=== PATIENT | male | born 1980 | race African-American/Black ===

== ENCOUNTER 2020-05-29 19:07 | Emergency (ER) | payer BC, SELFPAY ==
--- NOTE | ~2020-05-29 | XR_ITS ---
EXAMINATION: XR chest 2V EXAM DATE: 05/29/2020 20:20 INDICATION: Left-sided chest pain. TECHNIQUE: Frontal and lateral projections of the chest obtained and reviewed. There is no prior ajith dy for comparison. FINDINGS: The lungs are clear. There are no pleural effusions. The cardiomediastinal silhouette is within normal limits. There is no pneumothorax suspected. The bones and soft tissues are unremarkab le. IMPRESSION: Normal chest x-ray exam. Reviewed, dictated and finalized at location A. IMPRESSION: Normal chest x-ray exam.
--- NOTE | ~2020-05-29 | CT_ITS ---
EXAMINATION: CTA chest EXAM DATE: 05/29/2020 23:50 INDICATION: Chest pain radiates to back. TECHNIQUE: Spiral CT angiogram of the chest following intravenous injection of 100 mL Omnipaque 350. Axial, coronal and sagittal images were reviewed. Coronal maximum intensity pixel images of chest r eviewed. Maximum intensity projection 3-D reconstructions of the aorta were created by the [employer] on dedicated workstation. The dose-length product (DLP) for this examination was 1148.53 mGy-cm. The exposure was tailored according to patient size (auto mA exposure control), and iterative recons truction (ASIR) was used as additional dose reduction technique. There is no prior study for compari son. FINDINGS: No central pulmonary emboli. Thoracic aorta is normal. There are no pleural or pericardia l effusions. Tracheobronchial tree is patent. There is no mediastinal, hilar or axillary lymphade nopathy. There is no pneumothorax. Heart normal in size. There is mild coronary arterial calcif ication, arterial sclerosis. Small region of transient hepatic attenuation difference There is thor acic spondylosis without osteoblastic or osteolytic lesions identified. IMPRESSION: Normal thoracic aorta. No acute findings. Reviewed, dictated and finalized at location G.
[2020-05-29 19:25] VITALS: BP 208/113; PULSE 68; RESP 18; TEMP 36.7; O2SAT 98
--- NOTE | 2020-05-29 19:28 | ECG_ITS ---
Measurements Intervals [place] Rate: 71 P: 43 [place]: 176 QRS: 31 QRSD: 106 T: 15 QT: 363 QTc: 395 Interpretive Statements SINUS RHYTHM ST ELEVATION IN DIFFUSE LEADS CONSISTENT WITH INJURY, PERICARDITIS, OR EARLY REPOLARIZATION ABNORMAL ECG Electronically Signed On 05-30-2020 6:51:35 CDT by Paulino Escamilla D.O.
[2020-05-29 19:36] LABS: Basophils Percent Auto 0.4 % (0.2-1.2); Eosinophils Absolute Auto 0.1 K/mm3 (0-0.3); Eosinophils Percent Auto 1.3 % (0-4.4); Hematocrit 38.2 % (42.0-52.0); Hemoglobin 13.4 g/dL (14.0-18.0); Immature Granulocyte Absolute 0.01 K/mm3 (0.00-0.031); Immature Granulocyte Percent A 0.1 % (0-0.5); Lymphocytes Absolute Auto 2.34 K/mm3 (0.9-3.2); Lymphocytes Percent Auto 32.9 % (18.3-44.2); Mean Corpuscular HGB Conc 35.1 g/dl (32-36); Mean Corpuscular Hemoglobin 29.8 pg (26-34); Mean Corpuscular Volume 84.9 fl (80-100); Monocytes Absolute Auto 0.5 K/mm3 (0.1-0.6); Monocytes Percent Auto 7.6 % (2.6-8.5); Neutrophils Absolute Auto 4.1 K/mm3 (1.3-6.7); Neutrophils Percent Auto 57.7 % (45.5-73.1); Platelet Count Result 348 k/mm3 (150-375); Red Cell Distribution Width 12.6 % (11.5-14.5); White Blood Count 7.1 K/mm3 (4.5-10.0)
[2020-05-29 19:46] LABS: INR 1.1; Prothrombin Time 13.7 Seconds (11.1-14.7)
[2020-05-29 19:47] LABS: Anion Gap 10 mmol/L (8-16); Blood Urea Nitrogen 18 mg/dL (9-20); Calcium 9.5 mg/dL (8.4-10.2); Carbon Dioxide 30 mmol/L (22-30); Chloride 99 mmol/L (98-107); Estimated CRCL calculation 99 ml/min; Estimated Glomerular Filt Rate > 60; Glucose 92 mg/dL (75-110); Partial Thromboplastin Time 32.3 SECONDS (22.3-36.8); Potassium 3.7 mmol/L (3.4-5.0); Sodium 139 mmol/L (137-145)
[2020-05-29 19:59] LABS: Troponin I < 0.012 ng/mL (0.000-0.034)
[2020-05-29 21:24] VITALS: BP 158/87; PULSE 71; RESP 14; O2SAT 99
[2020-05-29 21:26] VITALS: BP 205/111; PULSE 67; RESP 16; O2SAT 99
[2020-05-29 21:28] VITALS: BP 208/109; PULSE 67; RESP 20; O2SAT 99
--- NOTE | 2020-05-29 21:29 | ED.GENADULT ---
HPI - General Adult General Chief complaint: Abdominal Pain Stated complaint: L sided body pain Time Seen by Provider: 05/29/20 21:05 Source: patient Mode of arrival: ambulatory Limitations: no limitations History of Present Illness HPI narrative: This patient is a 39 year old male with history of hypertension, obesity and hyperlipidemia who presents for evaluation of left side. PAtient reports he has been having intermittent pain to left upper abdomen, epigastric, midsternal and left shoulder for weeks. He states his pain is intermittent and it last for a few seconds. He reports the pain at these locations do not occur together. He describes his midsternal pain as burning. He does not think his pain is exertional. He reports his epigastric pain does appaear to be worse with eating. He denies associated nausea, vomiting, fever, cough or sob. He had a stress test 1 month ago by a machine shop lead man in [place] to assess his chest pain. He states he was told his test were normal. Related Data Home Medications Medication Instructions Recorded Confirmed amlodipine 05/29/20 carvedilol 05/29/20 05/29/20 cholecalciferol (vitamin D3) 05/29/20 clonidine HCl 05/29/20 losartan 05/29/20 omeprazole 05/29/20 rosuvastatin mg 05/29/20 spironolacton-hydrochlorothiaz tablet 05/29/20 Allergies Allergy/AdvReac Type Severity Reaction Status Date / Time No Known Allergies Allergy Verified 05/29/20 20:33 Review of Systems Review of Systems: All systems reviewed & are unremarkable except as noted in HPI and below Constitutional: Constitutional: Denies chills and Denies fever(s) Cardiovascular: Cardiovascular: Reports chest pain, Denies rapid heart rate and Denies radiating jaw, neck or arm pain Respiratory: Respiratory: Denies cough and Denies dyspnea Gastrointestinal: Gastrointestinal: Reports abdominal pain, Denies diarrhea, Denies nausea and Denies vomiting [facility] Past Medical History Medical History (Updated 05/30/20 @ 00:42 by Jordyn Rivera MD) Hyperlipidemia Hypertension Social History Social History (Updated 05/29/20 @ 21:34 by Jordyn Rivera MD) Smoking status: Never smoker Alcohol use details: rarely Substance use: never Gender identity (if verbalized by the patient): Male Exam Const: General: alert Nutritional Appearance: obese Orientation/consciousness: patient oriented x3 Eyes: EOM: EOMs intact bilaterally Chest: Chest palpation & inspection: normal inspection of the chest Resp: Effort & Inspection: normal respiratory effort, no retractions and no use of accessory muscles Auscultation: clear to auscultation bilaterally Cardio: Rate: regular rate Rhythm: regular rhythm Heart sounds: no murmurs GI: GI Palp: Yes Soft to palpation, Yes Tenderness to palpation present (GI) (epigastric), No Guarding due to palpation present (GI) and No Rigid due to palpation Skin: General skin exam: normal color Rashes: no rashes Neuro: General: patient oriented x3 and moves all extremities Course Reevaluation(s) Reevaluation #1: PAtient has no complaints. I discussed CT did not show any aortic abnormalities . His pain is atypical. He will follow up with PCP and machine shop lead man to discuss if he needs anything other than a stress test. Date: 05/30/20 Time: 00:39 Vital Signs Vital signs: Vital Signs Temperature 98.1 F 05/29/20 19:25 Pulse Rate 68 05/29/20 19:25 Respiratory Rate 18 05/29/20 19:25 Blood Pressure 208/113 H 05/29/20 19:25 Pulse Oximetry 98 05/29/20 19:25 Temperature 97.8 F 05/29/20 23:27 Pulse Rate 90 05/30/20 00:55 Respiratory Rate 18 05/30/20 00:55 Blood Pressure 140/86 05/30/20 00:55 Pulse Oximetry 100 05/30/20 00:55 Medical Decision Making Vital Signs Vital Signs: Vital Signs Temperature 98.1 F 05/29/20 19:25 Pulse Rate 68 05/29/20 19:25 Respiratory Rate 18 05/29/20 19:25 Blood Pressure 208/113 H 10
[2020-05-29 21:31] VITALS: BP 177/104; PULSE 68; RESP 16; O2SAT 99
[2020-05-29 21:32] LABS: Alanine Aminotransferase 29 U/L (4-50); Albumin Level 4.6 g/dL (3.5-5.1); Alkaline Phosphatase 112 U/L (38-126); Aspartate Amino Transferase 32 U/L (17-59); Bilirubin,Total 0.4 mg/dL (0.2-1.3); Lipase 77 U/L (23-300)
[2020-05-29 21:56] LABS: D Dimer 0.28 ug/mL (<0.48)
[2020-05-29] MEDS: BELLADONNA ALK/PHENOB ELIX 10 ML, MAG HYDROX/ALUMINUM HYD/SIMETH 30 ML, LIDOCAINE HCL 2... PO (22:21)
[2020-05-29 22:22] LABS: Add Urine Microscopic? NO; Appearance Urine Clear (Clear); Bilirubin Urine Negative (Negative); Blood Urine Negative (Negative); Color Urine Straw (Yellow); Glucose Urine UA Negative (Negative); Ketones Urine Negative (Negative); Leukocyte Esterase Ur Negative LEU/UL (Negative); Nitrate Urine Negative (Negative); Protein Urine Negative (Negative); Specific Grav Ur 1.012 (1.001-1.035); Urobilinogen Urine Negative mg/dL (<2.0)
[2020-05-29] MEDS: ASPIRIN 81 MG CHEWABLE TABLET 324 MG PO (22:22)
[2020-05-29] MEDS: PANTOPRAZOLE SODIUM IV 40 MG VIAL IV PUSH (22:22)
[2020-05-29 22:44] LABS: Troponin I < 0.012 ng/mL (0.000-0.034)
[2020-05-29 23:27] VITALS: BP 137/89; PULSE 61; RESP 16; TEMP 36.6; O2SAT 98
[2020-05-30 00:55] VITALS: BP 140/86; PULSE 90; RESP 18; O2SAT 100
== END 2020-05-30 00:56 | disposition home or self-care (01) ==
PROVIDERS: Emergency Medicine; Emergency Provider General Practice
DX: R10.13 Epigastric pain (principal); R07.89 Other chest pain; E66.9 Obesity, unspecified; Z68.39 Body mass index [BMI] 39.0-39.9, adult; E78.5 Hyperlipidemia, unspecified; I10 Essential (primary) hypertension; R94.31 Abnormal electrocardiogram [ECG] [EKG]
CPT/HCPCS: 36415; 71046; 71275; 80048; 80076; 81003; 83690; 84484; 85025; 85380; 85610; 85730; 93005; 96374; 99284; A9270; C9113; Q9967

== ENCOUNTER 2020-06-09 14:37 | Outpatient (CLI) | payer BC, SELFPAY ==
--- NOTE | 2020-07-04 17:11 | WPDHOMESLEEP ---
Sleep Study - Home Unattended Date of Study: 06/09/20 Ordering Provider: Clif Vásquez MD Interpreting Physician: Maira Norwood MD Home Sleep Study Type: Apnea Link Air Height: 1.78 m Weight: 126.099 kg Body Mass Index: 39.9 [place]: 8 Reason for Sleep Study Hypersomnia, frequent loud snoring Sleep History Killian Sanford is a 40-year-old male with a history of frequent loud snoring that causes others to complain. He rarely awakens at night with heartburn, belching or coughing. He occasionally awakens from sleep feeling short of breath. He rarely has trouble sleeping with a cold. He occasionally gasps for breath at night and occasionally has breathing problems at night reported to him by others. He denies sweating excessively at night. He rarely notices his heart pounding or beating irregularly at night. He occasionally falls asleep during the day, rarely while driving, rarely involuntarily. He never falls asleep during physical effort. He does not have loss of muscle tone was strong emotion. He does not have daytime difficulties due to excessive sleepiness. He does not feel paralyzed on waking or falling asleep and does not have vivid dreamlike scenes upon awakening or falling asleep. He has never a freight to go to sleep. He does not have nightmares. He frequently remembers his dreams, has racing thoughts, feelings of sadness, depression and anxiety. He frequently has muscular tension. He does not notice parts of his body jerking and he does not kick at night. He rarely has crawling and aching feelings in his legs at night and rarely has leg pain during the night. He denies morning jaw pain and does not grind his teeth during sleep. He occasionally has bothered by pain during the day. He has never awakened by pain at night. He occasionally wakes up feeling stiff in the morning with sore achy muscles and pain in the neck and spine. He has headaches, takes antacids regularly, has fatigue and feels unable to relax. He does not usually take naps. A short nap may be refreshing. He is drowsy in the morning for 1 hour. He feels better in the morning compared to the evening. Bedtime is 12 midnight taking 15 minutes to fall asleep waking 4 times at night to use the bathroom. While awake he will also just lie in bed and think about things. He wakes in the morning at 7:00 a.m., estimates 6 hours of sleep at night. On weekends he sleeps until 7:30 a.m. Habits: Never smoked tobacco. No caffeine alcohol or recreational drugs. . [facility] Past Medical History Medical History (Updated 07/05/20 @ 10:21 by Maira Norwood MD) Heartburn Hyperlipidemia Hypertension Social History Social History (Updated 05/29/20 @ 21:34 by Jordyn Rivera MD) Smoking status: Never smoker Alcohol use details: rarely Substance use: never Gender identity (if verbalized by the patient): Male Medications Home Medications Medication Instructions Recorded Confirmed Type amlodipine 05/29/20 History carvedilol 05/29/20 05/29/20 History cholecalciferol (vitamin D3) 05/29/20 History clonidine HCl 05/29/20 History losartan 05/29/20 History omeprazole 05/29/20 History rosuvastatin mg 05/29/20 History spironolacton-hydrochlorothiaz tablet 05/29/20 History naproxen 500 mg PO BID PRN #14 tablet 05/30/20 Rx omeprazole 40 mg PO DAILY #20 cap 05/30/20 Rx Sleep Procedure This test was performed using 4 channel monitoring including respiratory effort channel, snoring channel, heart rate channel, and oxygen saturation channel. This study was scored using [facility] guidelines. Sleep Architecture Not applicable for home sleep test. Respiratory Analysis The duration of recording time was 8 hours. The evaluation time was 7 hours 48 minutes. The apnea-hypopnea index is 22 moderately elevated. He had 79 apneas. The majority, 70%, 55 apneas were obstructive, 23% or 18 apneas were central and were 6 apneas were mixed. He had 90 hypo
[2020-07-05 10:27] VITALS: BMI 39.9
== END 2020-06-09 14:38 | disposition home or self-care (01) ==
LOC: ANHCSM 07-18 14:37
PROVIDERS: Visit Provider Family Medicine
DX: G47.10 Hypersomnia, unspecified (principal); G47.33 Obstructive sleep apnea (adult) (pediatric)
CPT/HCPCS: 95806

== ENCOUNTER 2020-08-19 01:55 | Emergency (ER) | payer BC, SELFPAY ==
--- NOTE | ~2020-08-19 | XR_ITS ---
EXAMINATION: XR chest 1V portable DATE: 08/19/2020 02:27 INDICATION: Midsternal chest pain TECHNIQUE: frontal view of the chest was obtained. COMPARISON: Chest radiograph dated 05/29/2020 FINDINGS: The lungs remain clear with no focal airspace opacities, pulmonary edema, pleural effusion or pneumot horax. The cardiomediastinal silhouette is normal. IMPRESSION: 1. Normal chest radiograph. Reviewed, dictated and finalized at location A. [employer] WORKER IMPRESSION: 1. Normal chest radiograph.
[2020-08-19 02:02] VITALS: BP 159/99; BP 176/107; PULSE 78; PULSE 80; RESP 14; RESP 16; TEMP 35.9; O2SAT 100; O2SAT 99
--- NOTE | 2020-08-19 02:09 | ECG_ITS ---
Measurements Intervals [place] Rate: 78 P: 19 IL: 201 QRS: 12 QRSD: 102 T: -33 QT: 357 QTc: 408 Interpretive Statements SINUS RHYTHM BORDERLINE AV CONDUCTION DELAY DELAYED PRECORDIAL R/S TRANSITION VOLTAGE CRITERIA FOR LVH BORDERLINE ST-T WAVE ABNORMALITY- INFERIOR LEADS BORDERLINE ECG Electronically Signed On 08-19-2020 7:16:24 EXPEDITER CLERK by Paulino Escamilla D.O.
[2020-08-19] MEDS: BELLADONNA ALK/PHENOB ELIX 10 ML, MAG HYDROX/ALUMINUM HYD/SIMETH 30 ML, LIDOCAINE HCL 2... PO (02:15)
[2020-08-19] MEDS: ASPIRIN 81 MG CHEWABLE TABLET 324 MG PO (02:15)
[2020-08-19 02:23] VITALS: PULSE 69; RESP 12; TEMP 37.3; O2SAT 98
[2020-08-19 02:25] LABS: Basophils Percent Auto 0.4 % (0.2-1.2); Eosinophils Absolute Auto 0.1 K/mm3 (0-0.3); Eosinophils Percent Auto 1.2 % (0-4.4); Hematocrit 37.2 % (42.0-52.0); Immature Granulocyte Absolute 0.01 K/mm3 (0.00-0.031); Immature Granulocyte Percent A 0.1 % (0-0.5); Lymphocytes Absolute Auto 2.29 K/mm3 (0.9-3.2); Lymphocytes Percent Auto 33.1 % (18.3-44.2); Mean Corpuscular HGB Conc 34.9 g/dl (32-36); Mean Corpuscular Volume 85.7 fl (80-100); Mean Platelet Volume 9.6 fl (7.4-10.4); Monocytes Absolute Auto 0.5 K/mm3 (0.1-0.6); Monocytes Percent Auto 6.9 % (2.6-8.5); Neutrophils Percent Auto 58.3 % (45.5-73.1); Platelet Count Result 318 k/mm3 (150-375); Red Blood Count 4.34 M/mm3 (4.6-6.20); Red Cell Distribution Width 12.3 % (11.5-14.5); White Blood Count 6.9 K/mm3 (4.5-10.0)
[2020-08-19 02:36] LABS: Alanine Aminotransferase 35 U/L (4-50); Albumin Level 4.4 g/dL (3.5-5.1); Alkaline Phosphatase 97 U/L (38-126); Anion Gap 9 mmol/L (8-16); Aspartate Amino Transferase 32 U/L (17-59); Bilirubin,Total 0.4 mg/dL (0.2-1.3); Blood Urea Nitrogen 15 mg/dL (9-20); Calcium 9.2 mg/dL (8.4-10.2); Carbon Dioxide 29 mmol/L (22-30); Chloride 103 mmol/L (98-107); Estimated CRCL calculation 110 ml/min; Estimated Glomerular Filt Rate > 60; Glucose 102 mg/dL (75-110); Lipase 75 U/L (23-300); Potassium 3.5 mmol/L (3.4-5.0); Sodium 141 mmol/L (137-145)
[2020-08-19 02:48] LABS: NT Pro B Type Natriuretic Pept 122 PG/ML (5-100); Troponin I < 0.012 ng/mL (0.000-0.034)
--- NOTE | 2020-08-19 02:55 | ED.GENADULT ---
HPI - General Adult General Chief complaint: Chest Pain Stated complaint: chest issues Time Seen by Provider: 08/19/20 02:06 History of Present Illness HPI narrative: Patient is a 40-year-old gentleman who presents [facility] department with chief complaint of chest pain. The patient states he has pain in the epigastric region reports radiates up into his chest reports been going on today denies diaphoresis denies shortness of breath denies COVID-19 exposure. The patient denies fever denies chills denies nausea or vomiting. Patient reports symptoms not improved by anything or they worsened by anything. Patient reports no significant past medical history. Patient reports no tobacco or cocaine use. Patient denies significant family history for cardiac disease at young age. Related Data Home Medications Medication Instructions Recorded Confirmed amlodipine 05/29/20 carvedilol 05/29/20 05/29/20 cholecalciferol (vitamin D3) 05/29/20 clonidine HCl 05/29/20 losartan 05/29/20 rosuvastatin mg 05/29/20 Allergies Allergy/AdvReac Type Severity Reaction Status Date / Time No Known Allergies Allergy Verified 08/19/20 02:07 Review of Systems Review of Systems: Narrative: A 10 system review of systems was completed on the patient and is negative except for what is stated in the HPI. Nursing and ancillary documentation was reviewed. [facility] Past Medical History Medical History Heartburn Hyperlipidemia Hypertension Social History Social History Smoking status: Never smoker Substance use: never Gender identity (if verbalized by the patient): Male Exam Narrative: Exam Narrative: GENERAL: Well-appearing, well-nourished, and in no acute distress. HEAD: Normocephalic, atraumatic. EYES: PERRLA and EOMI. ENT: Nares clear, no rhinorrhea or epistaxis. Mucous membranes moist. NECK: Supple. CHEST: Clear to auscultation. No respiratory distress. HEART: Regular rate and rhythm. No murmur heard. Normal peripheral pulses. ABDOMEN: Soft, nontender, nondistended, normal active bowel sounds. EXTREMITIES: Normal range of motion. No edema. SKIN: Warm, dry, no rash. NEURO: No focal deficits. Alert and oriented x3. PSYCH: Normal mood and affect. Course Vital Signs Vital signs: Vital Signs Temperature 35.9 C L 08/19/20 02:02 Pulse Rate 78 08/19/20 02:02 Respiratory Rate 14 08/19/20 02:02 Blood Pressure 159/99 H 08/19/20 02:02 Pulse Oximetry 99 08/19/20 02:02 Temperature 37.3 C 08/19/20 02:23 Pulse Rate 69 08/19/20 02:23 Respiratory Rate 12 08/19/20 02:23 Blood Pressure 159/99 H 08/19/20 02:02 Pulse Oximetry 98 08/19/20 02:23 Medical Decision Making Vital Signs Vital Signs: Vital Signs Temperature 35.9 C L 08/19/20 02:02 Pulse Rate 78 08/19/20 02:02 Respiratory Rate 14 08/19/20 02:02 Blood Pressure 159/99 H 08/19/20 02:02 Pulse Oximetry 99 08/19/20 02:02 Temperature 37.3 C 08/19/20 02:23 Pulse Rate 69 08/19/20 02:23 Respiratory Rate 12 08/19/20 02:23 Blood Pressure 159/99 H 08/19/20 02:02 Pulse Oximetry 98 08/19/20 02:23 Lab Data Result diagrams: 08/19/20 02:16 08/19/20 02:16 Labs: Lab Results 08/19/20 08/19/20 Range/Units 02:16 02:16 WBC 6.9 (4.5-10.0) K/mm3 RBC 4.34 L (4.6-6.20) M/mm3 Hgb 13.0 L (14.0-18.0) g/dL Hct 37.2 L (42.0-52.0) % MCV 85.7 (80-100) fl MCH 30.0 (26-34) pg MCHC 34.9 (32-36) g/dl RDW 12.3 (11.5-14.5) % Plt Count 318 (150-375) k/mm3 MPV 9.6 (7.4-10.4) fl Immature Gran % (Auto) 0.1 (0-0.5) % Neut % (Auto) 58.3 (45.5-73.1) % Lymph % (Auto) 33.1 (18.3-44.2) % Cole % (Auto) 6.9 (2.6-8.5) % Eos % (Auto) 1.2 (0-4.4) % Baso % (Auto) 0.4 (0.2-1.2) % Lymph # (Auto) 2.29 (0.9-3.2) K/mm3 Cole #
[2020-08-19 03:22] VITALS: BP 146/89; PULSE 62; RESP 15; O2SAT 97
== END 2020-08-19 03:23 | disposition home or self-care (01) ==
PROVIDERS: Emergency Provider Emergency Medicine; PCP Family Medicine
DX: R07.89 Other chest pain (principal); E78.5 Hyperlipidemia, unspecified; I10 Essential (primary) hypertension; R12 Heartburn; R94.31 Abnormal electrocardiogram [ECG] [EKG]
CPT/HCPCS: 36415; 71045; 80053; 83690; 83880; 84484; 85025; 93005; 99284; A9270

== ENCOUNTER 2021-03-27 20:30 | Emergency (ER) | payer BC, SELFPAY ==
--- NOTE | ~2021-03-27 | XR_ITS ---
EXAMINATION: XR chest 2V DATE: 03/27/2021 20:57 INDICATION: Left-sided chest pain TECHNIQUE: PA and lateral views of the chest were obtained. COMPARISON: Chest radiograph dated 08/19/2020 FINDINGS: The lungs remain clear with no focal airspace opacities, pulmonary edema, pleural effusion or pneumot horax. The cardiomediastinal silhouette is normal. Mild thoracic spondylosis. IMPRESSION: 1. No acute cardiopulmonary disease. Reviewed, dictated and finalized at location A.
--- NOTE | ~2021-03-27 | CT_ITS ---
EXAMINATION: CT brain wo con DATE: 03/28/2021 03:24 INDICATION: Headache for 3 days TECHNIQUE: Computed tomography (CT) of the head was performed without intravenous contrast. The mA wa s adjusted according to patient size. Iterative reconstruction technique was employed. Exam dose: 68 1.00 mGy-cm total exam DLP. COMPARISON: None FINDINGS: No intracranial mass lesion or hemorrhage or cerebrovascular accident. No midline shift or mass effect. Normal ventricular size. No subdural or epidural hematoma. Orbital contents are unremark able. The mastoid air cells and included paranasal sinuses are unremarkable. No fracture or bone destruction of the cranial vault. IMPRESSION: Negative examination Reviewed, dictated and finalized at Location A. Reviewed, dictated and finalized at location A. IMPRESSION: Negative examination
[2021-03-27 20:36] VITALS: BP 147/95; PULSE 70; RESP 18; TEMP 36.6; O2SAT 100
--- NOTE | 2021-03-27 20:40 | ECG_ITS ---
Measurements Intervals [place] Rate: 76 P: 18 [place]: 201 QRS: 15 QRSD: 103 T: -16 QT: 358 QTc: 403 Interpretive Statements SINUS RHYTHM VOLTAGE CRITERIA FOR LVH ST ELEVATION IN ANT/HIGH LAT LEADS- PROBABLY EARLY REPOLARIZATION ABNORMALITY BORDERLINE ST-T WAVE ABNORMALITY- INFERIOR LEADS BASELINE ARTIFACT- I, II, III BORDERLINE ECG Electronically Signed On 03-28-2021 5:59:24 CDT by Paulino Escamilla D.O.
[2021-03-27 20:56] LABS: Basophils Percent Auto 0.4 % (0.2-1.2); Eosinophils Absolute Auto 0.1 K/mm3 (0-0.3); Eosinophils Percent Auto 1.3 % (0-4.4); Hematocrit 38.3 % (42.0-52.0); Hemoglobin 12.8 g/dL (14.0-18.0); Immature Granulocyte Absolute 0.01 K/mm3 (0.00-0.031); Immature Granulocyte Percent A 0.1 % (0-0.5); Lymphocytes Absolute Auto 2.27 K/mm3 (0.9-3.2); Lymphocytes Percent Auto 29.8 % (18.3-44.2); Mean Corpuscular HGB Conc 33.4 g/dl (32-36); Mean Corpuscular Hemoglobin 28.7 pg (26-34); Mean Corpuscular Volume 85.9 fl (80-100); Mean Platelet Volume 9.5 fl (7.4-10.4); Monocytes Absolute Auto 0.6 K/mm3 (0.1-0.6); Neutrophils Absolute Auto 4.6 K/mm3 (1.3-6.7); Neutrophils Percent Auto 60.4 % (45.5-73.1); Platelet Count Result 351 k/mm3 (150-375); Red Blood Count 4.46 M/mm3 (4.6-6.20); Red Cell Distribution Width 12.8 % (11.5-14.5); White Blood Count 7.6 K/mm3 (4.5-10.0)
[2021-03-27 21:08] LABS: Anion Gap 10 mmol/L (8-16); Blood Urea Nitrogen 12 mg/dL (9-20); Calcium 9.2 mg/dL (8.4-10.2); Carbon Dioxide 27 mmol/L (22-30); Chloride 98 mmol/L (98-107); Estimated CRCL calculation 110 ml/min; Estimated Glomerular Filt Rate > 60; Glucose 94 mg/dL (65-110); Potassium 3.6 mmol/L (3.4-5.0); Sodium 135 mmol/L (137-145)
[2021-03-27 21:11] LABS: Prothrombin Time 12.9 Seconds (11.1-14.7)
[2021-03-27 21:12] LABS: Partial Thromboplastin Time 32.1 SECONDS (22.3-36.8)
[2021-03-27 21:19] LABS: Troponin I < 0.012 ng/mL (0.000-0.034)
[2021-03-27 22:30] VITALS: BP 137/76; PULSE 62; RESP 18; TEMP 36.3; O2SAT 100
[2021-03-28] MEDS: ASPIRIN 81 MG CHEWABLE TABLET 324 MG PO (01:04)
[2021-03-28 01:08] VITALS: PULSE 69
[2021-03-28 01:09] VITALS: BP 149/62; PULSE 69; RESP 20; O2SAT 98
[2021-03-28 01:50] LABS: Troponin I < 0.012 ng/mL (0.000-0.034)
[2021-03-28 03:24] VITALS: BP 156/94; PULSE 66; RESP 16; O2SAT 98
[2021-03-28] MEDS: KETOROLAC (*BKC) 60 MG/2 ML VIAL IM (03:25)
[2021-03-28 03:42] LABS: Troponin I < 0.012 ng/mL (0.000-0.034)
--- NOTE | 2021-03-28 03:42 | ED.GENADULT ---
HPI - General Adult General Chief complaint: Chest Pain Stated complaint: MOHR & CP Time Seen by Provider: 03/28/21 01:50 Source: patient, RN notes reviewed and old records reviewed Mode of arrival: ambulatory Limitations: no limitations History of Present Illness HPI narrative: This is a 40 year old male with history of hypertension who presents for evaluation of headache and chest pain. Patient has been having intermittent left chest pain for over 1 year. He reports yesterday morning he has been having intermittent chest pain that he describes as dull ache. He reports pain is occasionally worse with palpation of his chest pain and breathing. He denies cough, fever, shortness of breath. He has been seen multiple times for this same pain in which has had negative evaluation including CT chest. He also reports having a negative stress test 9-10 months ago. He denies having any pain now. Patient is also complaining of bifrontal headache that has been present for 3 days. He has take Excedrin for his headache with some improvement. He denies associated blurred vision, nausea or vomiting. He does state it is unusual for him to get headaches. He denies runny nose or congestion. Related Data Home Medications Medication Instructions Recorded Confirmed amlodipine 05/29/20 carvedilol 05/29/20 05/29/20 clonidine HCl 05/29/20 losartan 05/29/20 spironolacton-hydrochlorothiaz tablet 03/28/21 03/28/21 Allergies Allergy/AdvReac Type Severity Reaction Status Date / Time No Known Allergies Allergy Verified 03/28/21 01:10 Review of Systems Review of Systems: All systems reviewed & are unremarkable except as noted in HPI and below PMFSH Past Medical History Medical History Heartburn Hyperlipidemia Hypertension Social History Social History Smoking status: Never smoker Alcohol use details: rarely Substance use: never Gender identity (if verbalized by the patient): Male Exam Const: General: no acute distress and alert Orientation/consciousness: patient oriented x3 Eyes: EOM: EOMs intact bilaterally Chest: Chest palpation & inspection: tenderness (reproducible tenderness) Resp: Effort & Inspection: normal respiratory effort and no retractions Auscultation: clear to auscultation bilaterally Cardio: Rate: regular rate Rhythm: regular rhythm Heart sounds: no murmurs GI: GI Palp: Yes Soft to palpation, No Tenderness to palpation present (GI) and No Guarding due to palpation present (GI) Auscultation: normal bowel sounds Skin: General skin exam: normal color Rashes: no rashes Neuro: General: patient oriented x3, moves all extremities and CN's II-XI intact bilaterally Psych: Mental Status: mental status grossly normal Affect: normal affect Course Reevaluation(s) Reevaluation #1: I discussed with patient that labs unremarkable other than chronic anemia. No sign of bacterial infection. His chest pain is atypical and likely muscular. He has not deficits or signs of fever or meningitis. I offered to test for covid as cause of headache but he declines. Date: 03/28/21 Time: 04:46 Vital Signs Vital signs: Vital Signs Temperature 97.8 F 03/27/21 20:36 Pulse Rate 70 03/27/21 20:36 Respiratory Rate 18 03/27/21 20:36 Blood Pressure 147/95 H 03/27/21 20:36 Pulse Oximetry 100 03/27/21 20:36 Temperature 97.3 F L 03/27/21 22:30 Pulse Rate 79 03/28/21 05:04 Respiratory Rate 18 03/28/21 05:04 Blood Pressure 143/67 H 03/28/21 05:04 Pulse Oximetry 97 03/28/21 05:04 Medical Decision Making Vital Signs Vital Signs: Vital Signs Temperature 97.8 F 03/27/21 20:36 Pulse Rate 70 03/27/21 20:36 Respiratory Rate 18 03/27/21 20:36 Blood Pressure 147/95 H 03/27/21 20:36 Pulse Oximetry 100 03/27/21 20:36 Tempera
[2021-03-28 05:04] VITALS: BP 143/67; PULSE 79; RESP 18; O2SAT 97
== END 2021-03-28 05:06 | disposition home or self-care (01) ==
PROVIDERS: Emergency Medicine; Emergency Provider General Practice; PCP Family Medicine
DX: R07.89 Other chest pain (principal); R51.9 Headache, unspecified; I10 Essential (primary) hypertension; E78.5 Hyperlipidemia, unspecified
CPT/HCPCS: 36415; 70450; 71046; 80048; 84484; 85025; 85610; 85730; 93005; 96372; 99284; A9270; J1885

== ENCOUNTER 2025-06-05 14:16 | Emergency (ER) | payer OTHER, SELFPAY ==
--- NOTE | ~2025-06-05 | CT_ITS ---
EXAMINATION: CTA chest abdomen pelvis, 06/05/2025 16:40 CDT HISTORY: Hypertension, concern for dissection COMPARISON: No comparisons available. TECHNIQUE: CTA scan with 3D Reconstructions of the chest, abdomen and pelvis was performed with contrast Isovue 300, 92cc injected IV. One or more of the following dose reduction techniques were used: automated exposure control, adjustment of the mA and/or kV according to patient size, use of iterative reconstruction technique. Unless otherwise stated, incidental findings do not require dedicated follow up imaging FINDINGS: CT chest: No significant coronary calcification is present ([id number]) LUNGS: Clear without consolidation, effusion, or pneumothorax. HEART AND PERICARDIUM: Within normal limits. AORTA: Normal caliber aorta. MEDIASTINUM: Unremarkable. THYROID: The thyroid is unremarkable. CT abdomen: LIVER: Within the liver there is a vascular lesion noted measuring 2.5 x 4 cm incompletely evaluated. The liver contours are normal. No intrahepatic biliary duct dilatation. The portal vein is patent. SPLEEN: Unremarkable, no splenomegaly. KIDNEYS: Right Kidney: Unremarkable. No calculi. No hydronephrosis. Left Kidney: Unremarkable. No calculi. No hydronephrosis ADRENAL GLANDS: Left adrenal nodule 1.6 x 1.7 cm. PANCREAS: GALLBLADDER/BILIARY: Unremarkable. No biliary dilatation. STOMACH AND ESOPHAGUS: Visualized stomach and esophagus within normal limits. BOWEL/MESENTERY: Appendix normal. Mesentery normal. No thickening or dilated loops of small bowel. RETROPERITONEUM: Unremarkable AORTA/VASCULATURE: Normal caliber aorta. FREE FLUID OR FREE AIR: No free fluid.. CT pelvis: SOLID ORGANS/REPRODUCTIVE: Prostate prominent, correlate with PSA. BLADDER: Within normal limits. LYMPHADENOPATHY: No lymphadenopathy. OSSEOUS STRUCTURES: No acute osseous abnormality.No suspicious lesions. OVERLYING SOFT TISSUES: Unremarkable. IMPRESSION: 1. Negative for dissection or aneurysm. No acute process is identified 2. Liver lesion detailed above. Outpatient contrast-enhanced MRI recommended Reviewed, dictated and finalized at location P.
[2025-06-05 14:18] VITALS: BP 157/82; PULSE 102; RESP 18; TEMP 36.8; O2SAT 97
--- NOTE | 2025-06-05 14:48 | ECG_ITS ---
Test Date: 2025-06-05 15:00:46 Measurements Intervals [place] Rate: 91 P: 46 SD: 219 QRS: 28 QRSD: 98 T: -4 QT: 322 QTc: 398 Interpretive Statements SINUS RHYTHM WITH FIRST DEGREE AV BLOCK POSSIBLE LEFT ATRIAL ENLARGEMENT VOLTAGE CRITERIA FOR LVH MINIMAL Q WAVES- INFERIOR LEADS NONSPECIFIC ST & T-WAVE ABNORMALITY- INFERIOR LEADS BORDERLINE ECG No previous ECG available for comparison Electronically Signed On 06-05-2025 16:52:48 CDT by Paulino Escamilla D.O.
--- OUTSIDE RECORDS SUMMARY | 2025-06-05 14:49 | XMS_ITS | Clinical Summary ---
Author Organization [facility] Address [address] [place] [address] Care Team Providers Care Director Investment Banking Name Role Phone Camilo Woods NIGHT SUPERVISOR-[facility] Primary Care Provider Source Comments [facility],non-owned Affiliates and Associated Physician Practices is amultiple site organization consisting of ambulatory clinics and hospital sitesin [place], [place], [place] and [place]. This disclosure is being madepursuant to the Care Everywhere program and may not contain all information available regarding this patient. Last updated 18.[facility] Allergies No known active allergies Medications * Be aware that medications may not be up to date on this document. Alwaysverify current medications with the patient. traMADol (ULTRAM) 50 MG tablet Take 50 mg by mouth q6h PRN (Pain). 30 tablet 0 08/19/2016 Active naproxen (NAPROSYN) 500 MG tablet Take 500 mg by mouth 2 times daily with morning and evening meal. 30 tablet 0 08/19/2016 Active methocarbamol (ROBAXIN) 750 MG tablet Take 750 mg by mouth 3X/day PRN (Pain). 30 tablet 0 08/19/2016 Active pantoprazole EC (Protonix) 20 MG tablet Take 1 (one) tablet by mouth once daily 30 tablet 09/27/2022 Active Social History Tobacco Use Types Packs/Day Years Used Date Smoking Tobacco: Unknown Alcohol Use Standard Drinks/Week Comments No 0 (1 standard drink = 0.6 oz pur e alcohol) Sex and Gender Information Value Date Recorded Sex Assigned at Not on file Legal Sex Male 5:47 PM [employer] [place] Gender Identity Not on file Sexual Orientation Not on file Last Filed Vital Signs Vital Sign Reading Time Taken Comments Blood Pressure 130/73 09/27/2022 2:18 PM [facility] [place] Pulse 76 09/27/2022 2:18 PM [employer] [place] Temperature 35.9 C (96.6 F) 09/27/2022 2:18 PM [employer] [place] Respiratory Rate 16 09/27/2022 2:18 PM [employer] [place] Oxygen Saturation 98% 09/27/2022 2:18 PM [employer] [place] Inhaled Oxygen Concentration - - Weight 131.5 kg (290 lb) 09/27/2022 10:05 AM [place] [place] Height 177.8 cm (5' 10) 09/27/2022 10:05 AM [place] [place] Body Mass Index 41.61 09/27/2022 10:05 AM [place] [place] Plan of Treatment Health Maintenance Due Date Last Done Comments LIPID TESTING 1982 HIV SCREENING 1997 HEPATITIS C SCREENING 06/20/2000 DTAP/TDAP/TD VACCINES (1 - Tdap) 2001 HEPATITIS B VACCINE (1 of 3 - 19+ 3-dose series) 2001 HPV VACCINE (1 - 3-dose SCDM series) 2009 DEPRESSION SCREENING 08/18/2024 COVID-19 VACCINE (3 - 2024-2 6 season) 2025 10/05/2020, 09/07/2020 INFLUENZA VACCINE (#1) 2025 09/14/2019 ZOSTER VACCINE (1 of 2) 2032 HIB VACCINE Aged Out No longer eligi ble based on patient's age to complete this topic MENINGOCOCCAL (Group B) VACCINE SHARED DECISION-MAKING Aged Out No longer eligible based on patient's age to complete this topic MENINGOCOCCAL GROUPS A/C/Y/W VACCINE Aged Out No longer eligible b ased on patient's age to complete this topic PNEUMOCOCCAL VACCINE Aged Out No long er eligible based on patient's age to complete this topic Insurance MEDICAID - [place] AETNA [facility] MEDICAID - OUT OF FOR[facility]LY [facility], [facility]–1983 Care Teams Director Investment Banking Relationship Specialty Start Date End Date Camilo Woods, NIGHT SUPERVISOR-CLINICAL TRANSFORMATION SPECIALIST PCP - General 08/19/16
--- NOTE | 2025-06-05 14:53 | ED_ITS ---
HPI - General Adult General Chief complaint: Back Pain/Injury Stated complaint: back pain on inspiration Time Seen by Provider: 06/05/25 14:27 History of Present Illness HPI narrative: 44-year-old male present to the emergency department for evaluation for right- sided chest pain back pain that radiates into his abdomen. Patient denies any specific falls or injuries. Patient denies any shortness of breath but states the pain is worsened when taking a deep breath. Patient denies any associated numbness or weakness. Patient denies any prior history of RI. Patient is a medications for hypertension but states his blood pressure is typically well controlled but his blood pressure is elevated today. Patient states pain has been constant since yesterday. Patient describes it as a intermittent spasm pain that is worsened with movement. Related Data Home Medications ?Medication ?Instructions ?Recorded ?Confirmed ?Last Taken ?Type amlodipine 10 mg tablet 05/29/20 Unknown History carvedilol 25 mg tablet 05/29/20 05/29/20 Unknown H istory clonidine HCl 0.2 mg tablet 05/29/20 Unknown History losartan 100 mg tablet 05/29/20 Unknown History spironolactone 25 tablet 03/28/21 03/28/21 Unk nown History mg-hydrochlorothiazide 25 mg tablet Allergies Allergy/AdvReac Type Severity Reaction Status Date / Time No Known Allergies Allergy Verified 06/05/25 14:20 Review of Systems 2 Review of Systems: All systems reviewed & are unremarkable except as noted in HPI and below PMFSH Past Medical History Medical History Heartburn Hyperlipidemia Hypertension Social History Social History Smoking status: Never smoker Alcohol use details: rarely Substance use: never Gender identity (if verbalized by the patient): Male Exam 2 Narrative: APPEARANCE: Uncomfortable appearing HEAD: normocephalic, atraumatic. EYES: PERRLA/EOMI, conjunctivae clear. NOSE: Normal no drainage EARS:TMS clear with good light reflex. THROAT: Pharynx clear, no exudate. NECK: Supple. No adenopathy, no masses. RESPIRATORY: Airway patent, respirations nonlabored. Clear to auscultation bilaterally, no rales, rhonchi, wheezing. CARDIOVASCULAR: Regular rate and rhythm without murmurs rubs or gallops. ABDOMINAL: Soft, nontender, nondistended, normal bowel sounds MUSCULOSKELETAL: Reproducible muscular back tenderness to palpation NEURO: Alert. Cranial nerves II through XII intact. Good gait. Good coordination SKIN: Warm, dry. Normal Color Course Vital Signs Vital signs: Vital Signs Temperature 98.2 F 06/05/25 14:18 Pulse Rate 102 H 06/05/25 14:18 Respiratory Rate 18 06/05/25 14:18 Blood Pressure 157/82 H 06/05/25 14:18 Pulse Oximetry 97 06/05/25 14:18 Temperature 98.2 F 06/05/25 14:18 Pulse Rate 77 06/05/25 18:16 Respiratory Rate 16 06/05/25 18:16 Blood Pressure 142/74 H 06/05/25 18:16 Pulse Oximetry 92 06/05/25 18:16 Medical Decision Making MDM Narrative Medical decision making narrative: 44-year-old male present to the emergency department for evaluation for right- sided back pain and right flank pain. Patient is currently afebrile with no leukocytosis hemoglobin of 13.7. Patient's pain is been ongoing for 24 hours patient's troponin was negative EKG showed no evidence of acute STEMI. Patient has no acute abnormalities on his CMP. Patient is PERC negative. Patient's UA was negative for infection. CTA was negative for dissection. Patient did feel improved with treatment the emergency department. Patient's symptoms being described as back spasms worsened with movement are consistent with a musculoskeletal etiology. Low concern for cardiac event. Patient was provided medications for pain control at home. Patient was encouraged to return to the emergency department if any worsening symptoms. All questions concerns were addressed. Differential Diagnosis Differential Diagnosis: PE, dissection, ACS, pneumonia, pneumothorax, colitis, diverticulitis, acute cholecystitis, renal calculi, Vital Signs Vital Signs: Vital Signs Temperature 98.2 F 06/05/25 14:18 Pulse Rate 102 H 06/05/25 14:18 Respiratory Rate 18 06/05/25 14:18 Blood Pressure 157/82 H 06/05/25 14:18 Pulse Oximetry 97 06/05/25 14:18 Temperature 98.2 F 06/05/25 14:18 Pulse Rate 77 06/05/25 18:16 Respiratory Rate 16 06/05/25 18:16 Blood Pressure 142/74 H 06/05/25 18:16 Pulse Oximetry 92 06/05/25 18:16 Lab Data Lab results reviewed: Yes I reviewed the patient's lab results. 06/05/25 15:56 06/05/25 15:56 Labs: Lab Results 06/05/25 06/05/25 06/05/25 Range/Units 15:56 15:56 17:56 WBC 6.7 (4.5-10.0) K/mm3 RBC 4.65 (4.6-6.20) M/mm3 Hgb 13.7 L (14.0-18.0) g/dL Hct 40.3 L (42.0-52.0) % MCV 86.7 (80-100) fl MCH 29.5 (26-34) pg MCHC 34.0 (32-36) g/dl RDW 13.0 (11.5-14.5) % Plt Count 342 (150-375) k/mm3 MPV 9.7 (7.4-10.4) fl Immature Gran % (Auto) 0.3 (0-0.5) % Neut % (Auto) 67.8 (45.5-73.1) % Lymph % (Auto) 21.9 (18.3-44.2) % [place] % (Auto) 9.0 H (2.6-8.5) % Eos % (Auto) 0.6 (0-4.4) % Baso % (Auto) 0.4 (0.2-1.2) % Lymph # (Auto) 1.47 (0.9-3.2) K/mm3 [place] # (Auto) 0.6 (0.1-0.6) K/mm3 Eos # (Auto) 0.0 (0-0.3) K/mm3 Baso # (Auto) 0.0 (0.0-0.1) K/mm3 Abs Immat Gran (auto) 0.02 (0.00-0.031) K/mm3 Absolute Neuts (auto) 4.5 (1.3-6.7) K/mm3 Absolute Nucleated RBC 0.000 (0.0-0.012) K/mm3 Nucleated RBC % 0.0 (0.0-0.2) % PT 13.7 (11.1-14.7) Seconds INR 1.1 APTT 32.1 (22.3-36.8) Seconds Sodium 137 (137-145) mmol/L Potassium 3.5 (3.4-5.0) mmol/L Chloride 102 (98-107) mmol/L Carbon Dioxide 27 (22-30) mmol/L Anion Gap 8 (4-12) mmol/L BUN 14 (9-20) mg/dL Creatinine 0.81 (0.7-1.3) mg/dL Estim Creat Clear Calc 139 ml/min Estimated GFR > 60 (59 - ) Glucose 98 (65-110) mg/dL Calcium 8.9 (8.4-10.2) mg/dL Total Bilirubin 0.5 (0.2-1.3) mg/dL AST 31 (17-59) U/L ALT 24 (6-50) U/L Alkaline Phosphatase 113 (38-126) U/L Troponin I < 0.012 (0.000-0.034) ng/mL Total Protein 8.3 H (6.3-8.2) g/dL Albumin 4.4 (3.5-5.1) g/dL Lipase 61 Cancelled (23-300) U/L Urine Color Yellow (Yellow) Urine Appearance Clear (Clear) Urine pH 7.5 (5.0-9.0) Ur Specific [place] 1.023 (1.001-1.035) Urine Protein Negative (Negative) mg/dL Urine Glucose (UA) Negative (Negative) mg/dL Urine Ketones Negative (Negative) mg/dL Ur Blood (Man) Negative (Negative) Urine Nitrate Negative (Negative) Urine Bilirubin Negative (Negative) Urine Urobilinogen 0.2 (<2.0) mg/dL Leukocyte Esterase Rfl Negative (Negative) ESTEBAN/UL Imaging Data Radiologist's impression: Impressions Chest/Abdomen/Pelvis CTA 06/05/25 16:58 IMPRESSION: 1. Negative for dissection or aneurysm. No acute process is identified 2. Liver lesion detailed above. Outpatient contrast-enhanced MRI recommended Discharge Plan Discharge Clinical Impression: Atypical chest pain, Back pain Patient Disposition: Home Condition: Stable Instructions: Antibiotic Form, Back Pain (ED), Chest Wall Pain (ED) Additional Instructions: Naproxen for pain control. Flexeril for muscle spasm. [place] as needed for additional pain control. Have close follow-up with your primary care physician. If you have any worsening symptoms then please call or return to the emergency department. Patient Language: Khmer Prescriptions: New cyclobenzaprine 10 mg tablet 10 mg PO BID PRN (Reason: muscle spasm) Qty: 14 0RF hydrocodone-acetaminophen 5-325 mg tablet 1 tablet PO Q12H PRN (Reason: pain) Qty: 14 0RF No Action carvedilol 25 mg tablet clonidine HCl 0.2 mg tablet amlodipine 10 mg tablet losartan 100 mg tablet spironolacton-hydrochlorothiaz 25-25 mg tablet ibuprofen 800 mg tablet 800 mg PO TID PRN (Reason: pain) Qty: 14 0RF Follow-up/Referrals: PHYSICIAN,CABLE LACER [Primary Care Provider, Internal Medicine]
[2025-06-05] MEDS: HYDROmorphone HCL INJ (*CRX) 1 MG/ML SYR IV PUSH ×2 (15:51→17:55)
[2025-06-05 16:03] LABS: Hematocrit 40.3 % (42.0-52.0); Hemoglobin 13.7 g/dL (14.0-18.0); Immature Granulocyte Percent A 0.3 % (0-0.5); Lymphocytes Absolute Auto 1.47 K/mm3 (0.9-3.2); Mean Corpuscular HGB Conc 34.0 g/dl (32-36); Mean Corpuscular Hemoglobin 29.5 pg (26-34); Mean Corpuscular Volume 86.7 fl (80-100); Nucleated Red Blood Cells Absolute Auto 0.000 K/mm3 (0.0-0.012); Nucleated Red Blood Cells Perc 0.0 % (0.0-0.2); Platelet Count Result 342 k/mm3 (150-375); Red Blood Count 4.65 M/mm3 (4.6-6.20); White Blood Count 6.7 K/mm3 (4.5-10.0)
--- NOTE | 2025-06-05 16:03 | PC.NURSE ---
Pt educated on need for UA. Verbalized understanding. Urinal provided.
[2025-06-05 16:15] LABS: INR 1.1; Prothrombin Time 13.7 Seconds (11.1-14.7)
[2025-06-05 16:17] LABS: Partial Thromboplastin Time 32.1 Seconds (22.3-36.8)
[2025-06-05 16:34] LABS: Alanine Aminotransferase 24 U/L (6-50); Albumin Level 4.4 g/dL (3.5-5.1); Alkaline Phosphatase 113 U/L (38-126); Anion Gap 8 mmol/L (4-12); Aspartate Amino Transferase 31 U/L (17-59); Bilirubin,Total 0.5 mg/dL (0.2-1.3); Blood Urea Nitrogen 14 mg/dL (9-20); Calcium 8.9 mg/dL (8.4-10.2); Carbon Dioxide 27 mmol/L (22-30); Chloride 102 mmol/L (98-107); Estimated CRCL calculation 139 ml/min; Estimated Glomerular Filt Rate > 60; Glucose 98 mg/dL (65-110); Lipase 61 U/L (23-300); Potassium 3.5 mmol/L (3.4-5.0); Sodium 137 mmol/L (137-145); Total Protein 8.3 g/dL (6.3-8.2)
[2025-06-05 16:51] LABS: Troponin I < 0.012 ng/mL (0.000-0.034)
[2025-06-05] MEDS: CYCLOBENZAPRINE HCL 10 MG TABLET PO (17:55)
[2025-06-05 17:56] VITALS: BP 154/93; PULSE 85; RESP 14; O2SAT 94
[2025-06-05 18:09] LABS: Add Urine Microscopic? NO; Appearance Urine Clear (Clear); Glucose Urine UA Negative (Negative); Leukocyte Esterase Ur Negative LEU/UL (Negative); Nitrate Urine Negative (Negative); Specific Grav Ur 1.023 (1.001-1.035)
[2025-06-05 18:16] VITALS: BP 142/74; PULSE 77; RESP 16; O2SAT 92
--- NOTE | 2025-06-05 18:25 | PC.NURSE ---
RN went to discharge pt who politely requests to again discuss results with the doctor. Dr. Redding made aware at this time.
--- NOTE | 2025-06-05 18:36 | PC.NURSE ---
Pt spoke with Dr. Redding. Calling for a ride.
--- NOTE | 2025-06-05 19:59 | PC.NURSE ---
RN educated pt on importance of arranging ride home d/t dilaudid administration. Requesting pt call a ride. Pt is A&Ox4. Respiration even and unlabored. NAD noted.
== END 2025-06-05 20:01 | disposition home or self-care (01) ==
PROVIDERS: Emergency Provider Emergency Medicine
DX: R07.89 Other chest pain (principal); M54.9 Dorsalgia, unspecified; I10 Essential (primary) hypertension; E78.5 Hyperlipidemia, unspecified; I44.0 Atrioventricular block, first degree; R94.31 Abnormal electrocardiogram [ECG] [EKG]; K76.9 Liver disease, unspecified
CPT/HCPCS: 36415; 71275; 74174; 80053; 81003; 83690; 84484; 85025; 85610; 85730; 93005; 96374; 96375; 99284; A9270; J1171; Q9967